=== PATIENT | female | born 1990 ===

== ENCOUNTER 2020-11-08 13:29 | Outpatient (CLI) | payer SELFPAY | END 2020-11-08 13:30 | disposition home or self-care (01) | LOC: LAB 13:29 | DX: Z53.9 Procedure and treatment not carried out, unspecified reason (principal) | CPT/HCPCS: 36416; 85610 ==

== ENCOUNTER 2020-11-16 12:57 | Outpatient (CLI) | payer SELFPAY | END 2020-11-16 12:58 | disposition home or self-care (01) | LOC: LAB 12:57 | PROVIDERS: ATTEND Internal Medicine | DX: Z53.9 Procedure and treatment not carried out, unspecified reason (principal); I10 Essential (primary) hypertension | CPT/HCPCS: 36415; 80053; 81599; 85025; 85379; 87177; 87209; 87493 ==

== ENCOUNTER 2021-01-25 12:29 | Outpatient (CLI) | payer SELFPAY | END 2021-01-25 12:30 | disposition home or self-care (01) | LOC: LAB 12:29 | PROVIDERS: ATTEND Obstetrics & Gynecology | DX: Z53.9 Procedure and treatment not carried out, unspecified reason (principal) ==

== ENCOUNTER 2021-10-05 11:59 | Outpatient (CLI) | payer SELFPAY | END 2021-10-05 12:00 | disposition home or self-care (01) | LOC: ED 11:59 | DX: Z53.9 Procedure and treatment not carried out, unspecified reason (principal) | CPT/HCPCS: 86900; 86901 ==

== ENCOUNTER 2022-11-06 15:46 | Outpatient (CLI) | payer SELFPAY | END 2022-11-06 15:47 | disposition home or self-care (01) | LOC: DI 15:46 | PROVIDERS: ATTEND Physician Assistant Medical | DX: Z53.9 Procedure and treatment not carried out, unspecified reason (principal) ==

== ENCOUNTER 2023-06-04 13:19 | Outpatient (CLI) | payer SELFPAY | END 2023-06-04 13:20 | disposition home or self-care (01) | LOC: LAB 13:19 | DX: Z53.9 Procedure and treatment not carried out, unspecified reason (principal) ==